=== PATIENT | male | born 1955 | race Caucasian/White ===

== ENCOUNTER 2017-09-06 12:59 | Inpatient (IN) | payer OTHER ==
[~2017-09-06] VITALS: Ht 188 cm; Wt 98.7 kg
[2017-09-06 14:09] LABS: HEMATOCRIT 50.3 % (38.0-50.0); MCH 32.1 PG (29.0-34.0); MCHC 33.8 G/DL (30.0-36.0); MCV 94.9 FL (86-99); PLATELET COUNT 158 K/uL (156-360); RBC DIS.WIDTH-CV 14.4 % (11.8-14.6); RBC DIS.WIDTH-SD 49.2 % (39-53); WHITE BLOOD COUNT 8.2 K/uL (4.1-10.2)
[2017-09-06 14:18] LABS: CHLORIDE 103 mEq/L (99-109); POTASSIUM 4.1 mEq/L (3.7-5.4); SODIUM 135 mEq/L (136-147)
[2017-09-06 14:19] LABS: GLUCOSE 107 mg/dL (70-99)
[2017-09-06 14:23] LABS: CREATININE 1.2 mg/dL (0.6-1.3)
[2017-09-06 14:24] LABS: UREA NITROGEN (BUN) 27 mg/dL (9-23)
[2017-09-06 14:25] LABS: GFR ESTIMATE (CALCULATED) > 59 mL/min/ (58.99-99999)
[2017-09-06 14:30] LABS: TROP-I INTERPRETATION NEGATIVE; TROPONIN-I 0.02 ng/mL (0.0-0.30)
[2017-09-06] MEDS ORDERED: SPIRIVA RESPIMAT4 GM IH (16:56)
[2017-09-06] MEDS ORDERED: PRINIVIL10 MG PO (16:57)
[2017-09-06] MEDS ORDERED: Coumadin PO (16:57)
[2017-09-06] MEDS ORDERED: COMBIVENT RESPIM4 GM IH (16:57)
[2017-09-06] MEDS ORDERED: LIPITOR20 MG PO (16:57)
[2017-09-06] MEDS ORDERED: VITAMIN B-1100 MG PO (16:58)
[2017-09-06] MEDS ORDERED: LO-DOSE ASPIRIN81 M1 PO (16:58)
[2017-09-06] MEDS ORDERED: ONE DAILY1 EAC3 PO (16:58)
[2017-09-06] MEDS ORDERED: TYLENOL EXTRA500 MG PO (16:59)
[2017-09-06] MEDS ORDERED: SYSTANE ULTRA 015 ML BOTH EYES (17:00)
[2017-09-06] MEDS ORDERED: ALKA-SELTZER P1 EA11 PO (17:00)
[2017-09-06 18:21] VITALS: BP 96/52
[2017-09-06 19:50] VITALS: BP 76/36
[2017-09-06 20:14] LABS: INTER. NORMALIZED RATIO 4.4
[2017-09-06 20:19] LABS: TROP-I INTERPRETATION NEGATIVE; TROPONIN-I 0.02 ng/mL (0.0-0.30)
[2017-09-06 22:14] VITALS: BP 98/58
[2017-09-07 00:03] VITALS: BP 106/65
[2017-09-07 02:03] VITALS: BP 116/73
[2017-09-07 02:22] LABS: HEMATOCRIT 38.9 % (38.0-50.0); MCH 32.8 PG (29.0-34.0); MCHC 33.7 G/DL (30.0-36.0); MCV 97.3 FL (86-99); PLATELET COUNT 125 K/uL (156-360); RBC DIS.WIDTH-CV 14.5 % (11.8-14.6); WHITE BLOOD COUNT 7.2 K/uL (4.1-10.2)
[2017-09-07 02:24] LABS: HEMOGLOBIN 13.1 G/DL (12.5-16.6)
[2017-09-07 02:25] LABS: CHLORIDE 112 mEq/L (99-109); POTASSIUM 4.2 mEq/L (3.7-5.4); SODIUM 138 mEq/L (136-147)
[2017-09-07 02:37] LABS: TROP-I INTERPRETATION NEGATIVE; TROPONIN-I 0.01 ng/mL (0.0-0.30)
[2017-09-07 02:38] LABS: GLUCOSE 84 mg/dL (70-99)
[2017-09-07 02:42] LABS: GFR ESTIMATE (CALCULATED) > 59 mL/min/ (58.99-99999); UREA NITROGEN (BUN) 31 mg/dL (9-23)
[2017-09-07 02:44] LABS: INTER. NORMALIZED RATIO 4.7
[2017-09-07 04:27] VITALS: BP 110/68
[2017-09-07 08:00] VITALS: BP 134/75
[2017-09-07 12:48] VITALS: BP 111/68
[2017-09-07 19:05] VITALS: BP 103/65
[2017-09-08] VITALS (7 sets, daily range): BP systolic 101–142; BP diastolic 56–84
[2017-09-08 05:36] LABS: HEMATOCRIT 41.5 % (38.0-50.0); HEMOGLOBIN 13.6 G/DL (12.5-16.6); MCH 32.2 PG (29.0-34.0); MCHC 32.8 G/DL (30.0-36.0); MCV 98.1 FL (86-99); PLATELET COUNT 133 K/uL (156-360); RBC DIS.WIDTH-CV 14.5 % (11.8-14.6); RBC DIS.WIDTH-SD 51.1 % (39-53); RED BLOOD COUNT 4.23 M/uL (4.00-5.50); WHITE BLOOD COUNT 4.6 K/uL (4.1-10.2)
[2017-09-08 06:11] LABS: INTER. NORMALIZED RATIO 3.3
[2017-09-08 09:04] LABS: BASE EXCESS -3.3 mEq/L (-3 to +3); BICARBONATE 20.1 mEq/L (22-26); CARBOXY HGB 2.9 % (0-5); COMMENTS - BLOOD GASES A+C+; DEVICE HHFNC; FI02 100 %; METHEMOGLOBIN 1.4 % (0-1.5); O2 FLOW 50 L/MIN; PCO2 31 mm Hg (35-45); PO2 57 mm Hg (80-100); SITE LR; TOTAL RESP RATE 35 resp/min; pH 7.42 (7.35-7.45)
[2017-09-09 04:37] VITALS: BP 115/67
[2017-09-09 06:44] LABS: CHLORIDE 99 MEQ/L (99-109); CREATININE 0.7 MG/DL (0.6-1.3); GFR ESTIMATE (CALCULATED) > 59 mL/min/ (58.99-99999); POTASSIUM 4.6 MEQ/L (3.7-5.4); UREA NITROGEN (BUN) 20 mg/dL (9-23)
[2017-09-09 06:48] LABS: GLUCOSE 179 mg/dL (70-99)
[2017-09-09 06:49] LABS: SODIUM 130 MEQ/L (136-147)
[2017-09-09 08:04] VITALS: BP 128/70
[2017-09-09 12:33] VITALS: BP 124/67
[2017-09-09 16:00] VITALS: BP 141/75
[2017-09-09 19:28] VITALS: BP 114/59
[2017-09-09 23:16] VITALS: BP 108/55
[2017-09-10 03:30] VITALS: BP 112/54
[2017-09-10 06:01] LABS: CHLORIDE 98 MEQ/L (99-109); CREATININE 0.8 MG/DL (0.6-1.3); GFR ESTIMATE (CALCULATED) > 59 mL/min/ (58.99-99999); GLUCOSE 155 mg/dL (70-99); POTASSIUM 4.7 MEQ/L (3.7-5.4); SODIUM 133 MEQ/L (136-147); UREA NITROGEN (BUN) 25 mg/dL (9-23)
[2017-09-10 07:00] VITALS: BP 128/67
[2017-09-10 11:22] VITALS: BP 111/57
[2017-09-10 16:00] VITALS: BP 122/62
[2017-09-10 19:12] VITALS: BP 100/61
[2017-09-10 23:06] VITALS: BP 109/64
[2017-09-11 04:50] VITALS: BP 123/72
[2017-09-11 05:21] LABS: POTASSIUM 5.3 mEq/L (3.7-5.4); SODIUM 132 mEq/L (136-147)
[2017-09-11 05:22] LABS: GLUCOSE 135 mg/dL (70-99)
[2017-09-11 05:26] LABS: CREATININE 0.8 mg/dL (0.6-1.3); GFR ESTIMATE (CALCULATED) > 59 mL/min/ (58.99-99999)
[2017-09-11 05:27] LABS: UREA NITROGEN (BUN) 29 mg/dL (9-23)
[2017-09-11 05:30] LABS: CHLORIDE 97 mEq/L (99-109)
[2017-09-11 05:38] LABS: INTER. NORMALIZED RATIO 2.8
[2017-09-11 07:23] VITALS: BP 127/67
[2017-09-11 11:16] VITALS: BP 123/67
[2017-09-11 15:40] VITALS: BP 133/60
[2017-09-11 19:00] VITALS: BP 128/76
[2017-09-11 23:43] VITALS: BP 114/64
[2017-09-12 04:27] VITALS: BP 126/72
[2017-09-12 06:20] LABS: INTER. NORMALIZED RATIO 2.8
[2017-09-12 06:33] LABS: CHLORIDE 94 MEQ/L (99-109); CREATININE 0.8 MG/DL (0.6-1.3); GFR ESTIMATE (CALCULATED) > 59 mL/min/ (58.99-99999); GLUCOSE 134 mg/dL (70-99); POTASSIUM 5.4 MEQ/L (3.7-5.4); SODIUM 130 MEQ/L (136-147); UREA NITROGEN (BUN) 29 mg/dL (9-23)
[2017-09-12 07:44] VITALS: BP 165/82
[2017-09-12 11:22] VITALS: BP 130/92
[2017-09-12 11:55] VITALS: BP 124/63
[2017-09-12 15:58] VITALS: BP 121/90; BP 134/60
[2017-09-12 20:45] VITALS: BP 124/67
[2017-09-13] VITALS (7 sets, daily range): BP systolic 104–145; BP diastolic 59–83
[2017-09-13 05:57] LABS: HEMATOCRIT 43.6 % (38.0-50.0); HEMOGLOBIN 14.3 G/DL (12.5-16.6); MCH 31.8 PG (29.0-34.0); MCHC 32.8 G/DL (30.0-36.0); MCV 96.9 FL (86-99); NRBC (%) 2.5 /100 WBC (0-0); PLATELET COUNT 162 K/uL (156-360); RBC DIS.WIDTH-CV 15.3 % (11.8-14.6); RBC DIS.WIDTH-SD 50.4 % (39-53); WHITE BLOOD COUNT 8.8 K/uL (4.1-10.2)
[2017-09-13 06:06] LABS: INTER. NORMALIZED RATIO 2.8
[2017-09-13 06:13] LABS: CHLORIDE 93 MEQ/L (99-109); CREATININE 0.8 MG/DL (0.6-1.3); GFR ESTIMATE (CALCULATED) > 59 mL/min/ (58.99-99999); GLUCOSE 139 mg/dL (70-99); POTASSIUM 5.2 MEQ/L (3.7-5.4); SODIUM 130 MEQ/L (136-147); UREA NITROGEN (BUN) 31 mg/dL (9-23)
[2017-09-14 04:16] VITALS: BP 121/68
[2017-09-14 05:08] LABS: HEMATOCRIT 43.1 % (38.0-50.0); HEMOGLOBIN 14.2 G/DL (12.5-16.6); MCH 32.2 PG (29.0-34.0); MCHC 32.9 G/DL (30.0-36.0); MCV 97.7 FL (86-99); NRBC (%) 0.9 /100 WBC (0-0); PLATELET COUNT 148 K/uL (156-360); RBC DIS.WIDTH-CV 15.9 % (11.8-14.6); RBC DIS.WIDTH-SD 53.4 % (39-53); RED BLOOD COUNT 4.41 M/uL (4.00-5.50); WHITE BLOOD COUNT 10.5 K/uL (4.1-10.2)
[2017-09-14 05:13] LABS: INTER. NORMALIZED RATIO 2.7
[2017-09-14 05:35] LABS: ABS NEUTROPHIL COUNT 9.2; BAND NEUTROPHILS 0.9 % (0-8.0); EOSINOPHIL ABS CT 0; LYMPHOCYTES 5.4 % (15.0-45.0); MONOCYTES 7.3 % (0-9.0); SEG.NEUTROPHILS 86.4 % (46.0-76.0); SMUDGE CELLS 3.6
[2017-09-14 05:37] LABS: CHLORIDE 93 MEQ/L (99-109); CREATININE 0.8 MG/DL (0.6-1.3); GFR ESTIMATE (CALCULATED) > 59 mL/min/ (58.99-99999); GLUCOSE 141 mg/dL (70-99); POTASSIUM 5.5 MEQ/L (3.7-5.4); SODIUM 130 MEQ/L (136-147); UREA NITROGEN (BUN) 38 mg/dL (9-23)
[2017-09-14 07:35] VITALS: BP 131/73
[2017-09-14 11:45] VITALS: BP 115/65
[2017-09-14 15:50] VITALS: BP 116/67
[2017-09-14 19:48] VITALS: BP 112/70
[2017-09-14 23:23] VITALS: BP 110/63
[2017-09-15 04:00] VITALS: BP 104/65
[2017-09-15 05:27] LABS: BASOPHIL (%) 0.3 % (0-1); EOSINOPHIL (%) 0 % (0-5); HEMATOCRIT 44.6 % (38.0-50.0); HEMOGLOBIN 14.7 G/DL (12.5-16.6); LYMPHOCYTE (%) 11.4 % (15-42); LYMPHOCYTE COUNT 1.4 K/uL (1.0-2.8); MCH 32.1 PG (29.0-34.0); MCV 97.4 FL (86-99); MONOCYTE (%) 9.3 % (3-12); MONOCYTE COUNT 1.1 K/uL (0-0.8); NEUTROPHIL COUNT 9.4 K/uL (1.8-6.4); NRBC (%) 0.3 /100 WBC (0-0); PLATELET COUNT 154 K/uL (156-360); RBC DIS.WIDTH-CV 16.2 % (11.8-14.6); RBC DIS.WIDTH-SD 54.2 % (39-53); RED BLOOD COUNT 4.58 M/uL (4.00-5.50)
[2017-09-15 05:28] LABS: INTER. NORMALIZED RATIO 2.5
[2017-09-15 05:53] LABS: CHLORIDE 92 MEQ/L (99-109); CREATININE 0.8 MG/DL (0.6-1.3); GFR ESTIMATE (CALCULATED) > 59 mL/min/ (58.99-99999); GLUCOSE 115 mg/dL (70-99); POTASSIUM 5.3 MEQ/L (3.7-5.4); SODIUM 129 MEQ/L (136-147); UREA NITROGEN (BUN) 36 mg/dL (9-23)
[2017-09-15 07:26] VITALS: BP 130/74
[2017-09-15 11:01] VITALS: BP 117/65
[2017-09-15 15:00] VITALS: BP 126/70
[2017-09-15 21:26] VITALS: BP 110/59
[2017-09-16] VITALS (7 sets, daily range): BP systolic 106–126; BP diastolic 55–81
[2017-09-16 06:06] LABS: BASOPHIL (%) 0.2 % (0-1); EOSINOPHIL (%) 0.1 % (0-5); HEMATOCRIT 43.9 % (38.0-50.0); HEMOGLOBIN 14.8 G/DL (12.5-16.6); IMMATURE GRANULOCYTE (%) 1.5 % (0.0-0.7); LYMPHOCYTE (%) 10.2 % (15-42); LYMPHOCYTE COUNT 1.3 K/uL (1.0-2.8); MCH 33.3 PG (29.0-34.0); MCHC 33.7 G/DL (30.0-36.0); MCV 98.9 FL (86-99); MONOCYTE (%) 9.3 % (3-12); MONOCYTE COUNT 1.1 K/uL (0-0.8); NEUTROPHIL (%) 78.7 % (45-76); NEUTROPHIL COUNT 9.7 K/uL (1.8-6.4); NRBC (%) 0.3 /100 WBC (0-0); PLATELET COUNT 138 K/uL (156-360); RBC DIS.WIDTH-CV 17.5 % (11.8-14.6); RBC DIS.WIDTH-SD 57.4 % (39-53); RED BLOOD COUNT 4.44 M/uL (4.00-5.50); WHITE BLOOD COUNT 12.3 K/uL (4.1-10.2)
[2017-09-16 06:11] LABS: INTER. NORMALIZED RATIO 2.6
[2017-09-16 06:23] LABS: CHLORIDE 94 MEQ/L (99-109); CREATININE 0.7 MG/DL (0.6-1.3); GFR ESTIMATE (CALCULATED) > 59 mL/min/ (58.99-99999); GLUCOSE 101 mg/dL (70-99); POTASSIUM 5.2 MEQ/L (3.7-5.4); SODIUM 129 MEQ/L (136-147); UREA NITROGEN (BUN) 33 mg/dL (9-23)
[2017-09-17 04:00] VITALS: BP 120/7
[2017-09-17 05:24] LABS: BASOPHIL (%) 0.2 % (0-1); EOSINOPHIL (%) 0.2 % (0-5); HEMATOCRIT 45.5 % (38.0-50.0); IMMATURE GRANULOCYTE (%) 1.1 % (0.0-0.7); LYMPHOCYTE (%) 12.8 % (15-42); LYMPHOCYTE COUNT 1.4 K/uL (1.0-2.8); MONOCYTE (%) 8.7 % (3-12); NEUTROPHIL COUNT 8.4 K/uL (1.8-6.4); NRBC (%) 0.3 /100 WBC (0-0); PLATELET COUNT 136 K/uL (156-360); RBC DIS.WIDTH-CV 17.2 % (11.8-14.6); RED BLOOD COUNT 4.55 M/uL (4.00-5.50); WHITE BLOOD COUNT 10.9 K/uL (4.1-10.2)
[2017-09-17 05:39] LABS: INTER. NORMALIZED RATIO 2.2
[2017-09-17 05:55] LABS: CHLORIDE 92 MEQ/L (99-109); CREATININE 0.7 MG/DL (0.6-1.3); GFR ESTIMATE (CALCULATED) > 59 mL/min/ (58.99-99999); GLUCOSE 107 mg/dL (70-99); POTASSIUM 5.2 MEQ/L (3.7-5.4); SODIUM 129 MEQ/L (136-147); UREA NITROGEN (BUN) 30 mg/dL (9-23)
[2017-09-17 08:32] VITALS: BP 122/68
[2017-09-17 12:00] VITALS: BP 110/62
[2017-09-17 17:10] VITALS: BP 121/68
[2017-09-17 19:41] VITALS: BP 100/56
[2017-09-17 23:31] VITALS: BP 122/60
[2017-09-18 05:02] LABS: INTER. NORMALIZED RATIO 2.5
[2017-09-18 05:08] VITALS: BP 116/69
[2017-09-18 05:13] LABS: BASOPHIL (%) 0.2 % (0-1); EOSINOPHIL (%) 0.2 % (0-5); HEMATOCRIT 40.3 % (38.0-50.0); HEMOGLOBIN 14.9 G/DL (12.5-16.6); IMMATURE GRANULOCYTE (%) 1.3 % (0.0-0.7); LYMPHOCYTE (%) 7.2 % (15-42); LYMPHOCYTE COUNT 0.8 K/uL (1.0-2.8); MCH 39.3 PG (29.0-34.0); MCV 106.3 FL (86-99); MONOCYTE (%) 6.2 % (3-12); MONOCYTE COUNT 0.7 K/uL (0-0.8); NEUTROPHIL (%) 84.9 % (45-76); NEUTROPHIL COUNT 9.5 K/uL (1.8-6.4); NRBC (%) 0.4 /100 WBC (0-0); PLATELET COUNT 128 K/uL (156-360); RBC DIS.WIDTH-CV 22.2 % (11.8-14.6); RBC DIS.WIDTH-SD 63.8 % (39-53); RED BLOOD COUNT 3.79 M/uL (4.00-5.50); WHITE BLOOD COUNT 11.2 K/uL (4.1-10.2)
[2017-09-18 05:17] LABS: CHLORIDE 97 mEq/L (99-109); POTASSIUM 5.2 mEq/L (3.7-5.4); SODIUM 132 mEq/L (136-147)
[2017-09-18 05:19] LABS: GLUCOSE 139 mg/dL (70-99)
[2017-09-18 05:23] LABS: CREATININE 0.8 mg/dL (0.6-1.3); GFR ESTIMATE (CALCULATED) > 59 mL/min/ (58.99-99999)
[2017-09-18 05:24] LABS: UREA NITROGEN (BUN) 40 mg/dL (9-23)
[2017-09-18 07:00] VITALS: BP 119/74
[2017-09-18 11:43] VITALS: BP 102/56
[2017-09-18 15:36] VITALS: BP 128/63
[2017-09-18 19:27] VITALS: BP 122/65
[2017-09-18 23:06] VITALS: BP 113/64
[2017-09-19 03:35] VITALS: BP 137/75
[2017-09-19 04:56] LABS: BASOPHIL (%) 0.2 % (0-1); EOSINOPHIL (%) 0.2 % (0-5); HEMATOCRIT 42.3 % (38.0-50.0); HEMOGLOBIN 14.9 G/DL (12.5-16.6); IMMATURE GRANULOCYTE (%) 1.5 % (0.0-0.7); LYMPHOCYTE (%) 8.8 % (15-42); MCH 36.6 PG (29.0-34.0); MCHC 35.2 G/DL (30.0-36.0); MCV 103.9 FL (86-99); MONOCYTE (%) 8.5 % (3-12); NEUTROPHIL (%) 80.8 % (45-76); NEUTROPHIL COUNT 9.3 K/uL (1.8-6.4); NRBC (%) 0.5 /100 WBC (0-0); PLATELET COUNT 133 K/uL (156-360); RBC DIS.WIDTH-CV 20.9 % (11.8-14.6); RBC DIS.WIDTH-SD 63.8 % (39-53); RED BLOOD COUNT 4.07 M/uL (4.00-5.50); WHITE BLOOD COUNT 11.5 K/uL (4.1-10.2)
[2017-09-19 04:59] LABS: INTER. NORMALIZED RATIO 3.2
[2017-09-19 05:17] LABS: CHLORIDE 100 mEq/L (99-109)
[2017-09-19 05:18] LABS: POTASSIUM 5.1 mEq/L (3.7-5.4); SODIUM 133 mEq/L (136-147)
[2017-09-19 05:19] LABS: GLUCOSE 119 mg/dL (70-99)
[2017-09-19 05:23] LABS: CREATININE 0.9 mg/dL (0.6-1.3); GFR ESTIMATE (CALCULATED) > 59 mL/min/ (58.99-99999)
[2017-09-19 05:24] LABS: UREA NITROGEN (BUN) 44 mg/dL (9-23)
[2017-09-19 08:04] VITALS: BP 125/75
[2017-09-19 12:01] VITALS: BP 103/52
[2017-09-19 16:31] VITALS: BP 116/68
[2017-09-19 19:30] VITALS: BP 121/74
[2017-09-20] VITALS (7 sets, daily range): BP systolic 97–133; BP diastolic 54–71
[2017-09-20 06:30] LABS: BASOPHIL (%) 0.2 % (0-1); EOSINOPHIL COUNT 0.1 K/uL (0-0.3); HEMATOCRIT 43.9 % (38.0-50.0); HEMOGLOBIN 14.4 G/DL (12.5-16.6); LYMPHOCYTE (%) 16.1 % (15-42); LYMPHOCYTE COUNT 1.8 K/uL (1.0-2.8); MCH 33.3 PG (29.0-34.0); MCHC 32.8 G/DL (30.0-36.0); MCV 101.4 FL (86-99); MONOCYTE (%) 7.6 % (3-12); MONOCYTE COUNT 0.8 K/uL (0-0.8); NEUTROPHIL (%) 74.1 % (45-76); NEUTROPHIL COUNT 8.2 K/uL (1.8-6.4); NRBC (%) 0.4 /100 WBC (0-0); PLATELET COUNT 121 K/uL (156-360); RBC DIS.WIDTH-CV 18.4 % (11.8-14.6); RBC DIS.WIDTH-SD 63.9 % (39-53); RED BLOOD COUNT 4.33 M/uL (4.00-5.50); WHITE BLOOD COUNT 11.1 K/uL (4.1-10.2)
[2017-09-20 06:40] LABS: INTER. NORMALIZED RATIO 3.5
[2017-09-20 08:34] LABS: CHLORIDE 95 MEQ/L (99-109); CREATININE 0.7 MG/DL (0.6-1.3); GFR ESTIMATE (CALCULATED) > 59 mL/min/ (58.99-99999); POTASSIUM 4.8 MEQ/L (3.7-5.4); SODIUM 132 MEQ/L (136-147); UREA NITROGEN (BUN) 30 mg/dL (9-23)
[2017-09-20 08:35] LABS: GLUCOSE 87 mg/dL (70-99)
[2017-09-21 05:26] VITALS: BP 124/78
[2017-09-21 05:39] LABS: INTER. NORMALIZED RATIO 2.8
[2017-09-21 08:17] VITALS: BP 119/65
[2017-09-21 11:24] VITALS: BP 102/59
[2017-09-21 17:15] VITALS: BP 102/60
[2017-09-21 19:15] VITALS: BP 112/64
[2017-09-22] VITALS (7 sets, daily range): BP systolic 91–126; BP diastolic 53–69
[2017-09-22 05:57] LABS: INTER. NORMALIZED RATIO 1.8
[2017-09-22 08:43] LABS: CARBOXY HGB 2.9 % (0-5); METHEMOGLOBIN 1.7 % (0-1.5); PCO2 33 mm Hg (35-45)
[2017-09-22 08:44] LABS: BICARBONATE 28.2 mEq/L (22-26); PO2 44 mm Hg (80-100); pH 7.54 (7.35-7.45)
[2017-09-22 08:46] LABS: COMMENTS - BLOOD GASES A+C+; DEVICE HFNC; O2 FLOW 12 L/MIN; SITE LR; TOTAL RESP RATE 22 resp/min
[2017-09-22 09:11] LABS: BASOPHIL (%) 0.2 % (0-1); EOSINOPHIL (%) 0.7 % (0-5); EOSINOPHIL COUNT 0.1 K/uL (0-0.3); HEMATOCRIT 46.2 % (38.0-50.0); HEMOGLOBIN 15.5 G/DL (12.5-16.6); IMMATURE GRANULOCYTE (%) 0.6 % (0.0-0.7); LYMPHOCYTE (%) 14.9 % (15-42); LYMPHOCYTE COUNT 1.6 K/uL (1.0-2.8); MCH 33.6 PG (29.0-34.0); MCHC 33.5 G/DL (30.0-36.0); MCV 100.2 FL (86-99); MONOCYTE (%) 6.7 % (3-12); MONOCYTE COUNT 0.7 K/uL (0-0.8); NEUTROPHIL (%) 76.9 % (45-76); NEUTROPHIL COUNT 8.4 K/uL (1.8-6.4); PLATELET COUNT 120 K/uL (156-360); RBC DIS.WIDTH-CV 18.6 % (11.8-14.6); RBC DIS.WIDTH-SD 65.6 % (39-53); RED BLOOD COUNT 4.61 M/uL (4.00-5.50)
[2017-09-22 09:33] LABS: CHLORIDE 95 MEQ/L (99-109); POTASSIUM 4.2 MEQ/L (3.7-5.4); SODIUM 134 MEQ/L (136-147)
[2017-09-22 09:38] LABS: CREATININE 0.6 MG/DL (0.6-1.3); GFR ESTIMATE (CALCULATED) > 59 mL/min/ (58.99-99999); GLUCOSE 85 mg/dL (70-99); UREA NITROGEN (BUN) 28 mg/dL (9-23)
[2017-09-23 05:32] LABS: BASOPHIL (%) 0.1 % (0-1); EOSINOPHIL (%) 0 % (0-5); HEMATOCRIT 42.7 % (38.0-50.0); IMMATURE GRANULOCYTE (%) 0.8 % (0.0-0.7); LYMPHOCYTE (%) 5.6 % (15-42); LYMPHOCYTE COUNT 0.4 K/uL (1.0-2.8); MCH 33.9 PG (29.0-34.0); MCHC 32.8 G/DL (30.0-36.0); MCV 103.4 FL (86-99); MONOCYTE (%) 3.3 % (3-12); MONOCYTE COUNT 0.3 K/uL (0-0.8); NEUTROPHIL (%) 90.2 % (45-76); NEUTROPHIL COUNT 6.9 K/uL (1.8-6.4); PLATELET COUNT 124 K/uL (156-360); RBC DIS.WIDTH-CV 20.2 % (11.8-14.6); RBC DIS.WIDTH-SD 68.4 % (39-53); RED BLOOD COUNT 4.13 M/uL (4.00-5.50); WHITE BLOOD COUNT 7.6 K/uL (4.1-10.2)
[2017-09-23 05:56] LABS: INTER. NORMALIZED RATIO 1.8
[2017-09-23 06:06] VITALS: BP 102/54
[2017-09-23 06:23] LABS: CHLORIDE 98 MEQ/L (99-109); CREATININE 0.6 MG/DL (0.6-1.3); GFR ESTIMATE (CALCULATED) > 59 mL/min/ (58.99-99999); SODIUM 131 MEQ/L (136-147); UREA NITROGEN (BUN) 30 mg/dL (9-23)
[2017-09-23 06:27] LABS: GLUCOSE 160 mg/dL (70-99); POTASSIUM 5.1 MEQ/L (3.7-5.4)
[2017-09-23 08:10] VITALS: BP 117/71
[2017-09-23 11:05] VITALS: BP 94/54
[2017-09-23 14:47] VITALS: BP 107/56
[2017-09-23 21:30] VITALS: BP 104/58
[2017-09-24] VITALS (7 sets, daily range): BP systolic 108–118; BP diastolic 50–72
[2017-09-24 05:53] LABS: BASOPHIL (%) 0.1 % (0-1); EOSINOPHIL (%) 0 % (0-5); HEMATOCRIT 39.6 % (38.0-50.0); HEMOGLOBIN 13.3 G/DL (12.5-16.6); IMMATURE GRANULOCYTE (%) 0.9 % (0.0-0.7); LYMPHOCYTE (%) 5.4 % (15-42); LYMPHOCYTE COUNT 0.5 K/uL (1.0-2.8); MCH 35.3 PG (29.0-34.0); MCHC 33.6 G/DL (30.0-36.0); MONOCYTE (%) 3.5 % (3-12); MONOCYTE COUNT 0.3 K/uL (0-0.8); NEUTROPHIL (%) 90.1 % (45-76); NEUTROPHIL COUNT 8.6 K/uL (1.8-6.4); PLATELET COUNT 134 K/uL (156-360); RBC DIS.WIDTH-CV 21.2 % (11.8-14.6); RBC DIS.WIDTH-SD 71.7 % (39-53); RED BLOOD COUNT 3.77 M/uL (4.00-5.50); WHITE BLOOD COUNT 9.5 K/uL (4.1-10.2)
[2017-09-24 06:00] LABS: INTER. NORMALIZED RATIO 1.9
[2017-09-24 06:24] LABS: CHLORIDE 100 MEQ/L (99-109); CREATININE 0.7 MG/DL (0.6-1.3); GFR ESTIMATE (CALCULATED) > 59 mL/min/ (58.99-99999); GLUCOSE 176 mg/dL (70-99); POTASSIUM 4.6 MEQ/L (3.7-5.4); SODIUM 135 MEQ/L (136-147); UREA NITROGEN (BUN) 36 mg/dL (9-23)
[2017-09-25 05:00] VITALS: BP 116/69
[2017-09-25 05:15] LABS: BASOPHIL (%) 0.1 % (0-1); EOSINOPHIL (%) 0 % (0-5); HEMATOCRIT 38.1 % (38.0-50.0); HEMOGLOBIN 12.9 G/DL (12.5-16.6); IMMATURE GRANULOCYTE (%) 0.8 % (0.0-0.7); LYMPHOCYTE (%) 5.5 % (15-42); LYMPHOCYTE COUNT 0.6 K/uL (1.0-2.8); MCH 36.2 PG (29.0-34.0); MCHC 33.9 G/DL (30.0-36.0); MONOCYTE (%) 3.7 % (3-12); MONOCYTE COUNT 0.4 K/uL (0-0.8); NEUTROPHIL (%) 89.9 % (45-76); NEUTROPHIL COUNT 8.9 K/uL (1.8-6.4); PLATELET COUNT 129 K/uL (156-360); RBC DIS.WIDTH-CV 21.3 % (11.8-14.6); RBC DIS.WIDTH-SD 72.7 % (39-53); RED BLOOD COUNT 3.56 M/uL (4.00-5.50); WHITE BLOOD COUNT 9.9 K/uL (4.1-10.2)
[2017-09-25 05:16] LABS: INTER. NORMALIZED RATIO 2.3
[2017-09-25 05:48] LABS: CHLORIDE 100 MEQ/L (99-109); CREATININE 0.7 MG/DL (0.6-1.3); GFR ESTIMATE (CALCULATED) > 59 mL/min/ (58.99-99999); GLUCOSE 225 mg/dL (70-99); POTASSIUM 5.3 MEQ/L (3.7-5.4); SODIUM 133 MEQ/L (136-147); UREA NITROGEN (BUN) 32 mg/dL (9-23)
[2017-09-25 08:23] VITALS: BP 113/58
[2017-09-25 11:47] VITALS: BP 106/52
== END 2017-09-25 14:05 | DRG 189 ==
LOC: EME 12:59 → 4EAST 16:23 → EDOF 16:23 → ENRESERV 16:28 → EDOF 16:52 → ENRESERV 16:52 → EDOF 16:52 → ENRESERV 17:15 → 4EAST 17:57 → ENRESERV 09-25 13:55 → CANRESERV 09-25 13:55 → 4EAST 09-25 14:05
PROVIDERS: Internal Medicine; Student in an Organized Health Care Education/Training Program
DX: J96.21 Acute and chronic respiratory failure with hypoxia (principal); J84.10 Pulmonary fibrosis, unspecified; J44.1 Chronic obstructive pulmonary disease with (acute) exacerbation; J44.0 Chronic obstructive pulmonary disease with (acute) lower respiratory infection; J18.9 Pneumonia, unspecified organism; E87.1 Hypo-osmolality and hyponatremia; T50.1X5A Adverse effect of loop [high-ceiling] diuretics, initial encounter; E87.5 Hyperkalemia; B37.0 Candidal stomatitis; Z51.5 Encounter for palliative care; Z66 Do not resuscitate; R79.1 Abnormal coagulation profile; T45.515A Adverse effect of anticoagulants, initial encounter; I48.2 Chronic atrial fibrillation; R00.1 Bradycardia, unspecified; E78.5 Hyperlipidemia, unspecified; I10 Essential (primary) hypertension; I25.10 Atherosclerotic heart disease of native coronary artery without angina pectoris; I27.20 Pulmonary hypertension, unspecified; Z79.01 Long term (current) use of anticoagulants; I25.2 Old myocardial infarction; Z86.711 Personal history of pulmonary embolism; Z87.891 Personal history of nicotine dependence; Z99.81 Dependence on supplemental oxygen; Z79.82 Long term (current) use of aspirin
CPT/HCPCS: 36600; 71045; 71046; 71250; 80048; 80202; 82803; 84145 90; 84484; 85025; 85027; 85610; 87040; 87070; 87116; 87205; 87206; 87449; 87502; 87641; 90686; 93005; 93306; 94010; 94640; 94640 76; 94668; 94760; 94799; 97530 GP; 99202; 99281; 99285; J0456; J0692; J0696; J1940; J2920; J2930; J3370; J7030; J7512

== ENCOUNTER 2017-09-25 14:04 | Inpatient (IN) | payer OTHER ==
[~2017-09-25 14:04] MED LIST: ALKA-SELTZER P1 EA11 PO; COMBIVENT RESPIM4 GM IH; Coumadin PO; LIPITOR20 MG PO; LO-DOSE ASPIRIN81 M1 PO; ONE DAILY1 EAC3 PO; PRINIVIL10 MG PO; SPIRIVA RESPIMAT4 GM IH; SYSTANE ULTRA 015 ML BOTH EYES; TYLENOL EXTRA500 MG PO; VITAMIN B-1100 MG PO
[2017-09-25 14:47] VITALS: BP 102/58
[2017-09-25 19:26] VITALS: BP 113/61
[2017-09-26 07:52] VITALS: BP 117/62
[2017-09-26 20:00] VITALS: BP 96/54
[2017-09-27 12:10] VITALS: BP 94/51
[2017-09-27 21:00] VITALS: BP 86/50
[2017-09-28 07:16] VITALS: BP 105/64
[2017-09-28 22:57] VITALS: BP 95/55
== END 2017-09-29 13:56 | DRG 951 ==
LOC: 4EAST 14:04 → ENRESERV 09-27 11:46 → 5EAST 09-28 20:25
DX: Z51.5 Encounter for palliative care (principal); J44.1 Chronic obstructive pulmonary disease with (acute) exacerbation; J96.01 Acute respiratory failure with hypoxia; J84.10 Pulmonary fibrosis, unspecified; Z66 Do not resuscitate; I10 Essential (primary) hypertension; I25.10 Atherosclerotic heart disease of native coronary artery without angina pectoris; I48.2 Chronic atrial fibrillation; I25.2 Old myocardial infarction; Z79.01 Long term (current) use of anticoagulants; Z79.82 Long term (current) use of aspirin; Z86.711 Personal history of pulmonary embolism; Z87.891 Personal history of nicotine dependence
CPT/HCPCS: 94640; 94640 76; 94799; J2060; J2270